=== PATIENT | female | born 1960 | race Caucasian/White ===

== ENCOUNTER → 2018-06-16 13:07 | Outpatient (CLI) | payer OTHER, SELFPAY ==
--- NOTE | 2018-06-16 | DI.MG.S_ITS ---
BILATERAL DIGITAL SCREENING MAMMOGRAM 3D/2D WITH CAD: 06/16/2018 CLINICAL: Routine screening. Comparison is made to exams dated: 08/15/2016 mammogram, 04/10/2013 mammogram, and 02/13/2012 mammogram - [facility] [place]. There are scattered fibroglandular elements in both breasts. Current study was also evaluated with a Computer Aided Detection (CAD) system. There is a mole marker on the left breast. No significant masses, calcifications, or other findings are seen in either breast. There has been no significant interval change. IMPRESSION: NEGATIVE There is no mammographic evidence of malignancy. A 1 year screening mammogram is recommended.(06/17/2019) This exam was interpreted at Station ID: [id number]. NOTE: For mammograms, a report in lay terms will be sent to the patient. Approximately 15% of breast malignancies will not be visualized mammographically. In the management of a palpable breast mass, a negative mammogram must not discourage biopsy of a clinically suspicious lesion. Electronically Signed By: Devin wells/aba:06/17/2018 01:07:07 copy to: Glenny Hendrickson letter sent: Normal Exam ACR BI-RADS Category 1: Negative [id number]
== END ==
PROVIDERS: PCP Family Medicine; Visit Provider Family Medicine
DX: Z12.31 Encounter for screening mammogram for malignant neoplasm of breast (principal)
CPT/HCPCS: 77063; 77067

== ENCOUNTER 2018-07-07 14:24 | Day surgery (SDC) | payer OTHER, SELFPAY ==
[2018-07-02 08:33] VITALS: BMI 27.1
--- NOTE | 2018-07-07 | PATH_ITS ---
[facility] Accession Number: [id number] . 01 Material submitted: . ENDOMETRIAL POLYP . 02 Diagnosis: Endometrium, Polyp, Biopsy: Benign endometrial polyp. No evidence of neoplasia or hyperplasia. [facility]/07/09/2018 . 02 Electronically signed: . Jazmyn Perez MD, Pathologist NPI- [id number] . 01 Gross description: . Received one formalin-filled container labeled with the patient's name and labeled endometrial polyp. The specimen consists of approximately a 1.25 cc aggregate of tissue, mucoid material and blood. Filtered, wrapped and entirely submitted in cassette A1. Also, received are three lewis-montoya to light montoya-brown rough irregularly shaped portions of tissue, which aggregate to 5.0 x 2.5 x 1.5 cm. The specimen is sectioned into multiple pieces and totally submitted in cassettes A2-A8. ([facility]:[id number]) /[facility] . 02 Pathologist provided ICD-10: N84.1 . 02 CPT . 586624 Performed at: 01 [facility] [address], [place], [place] [id number] MD Yan Jiang MD Phone: [phone] Performed at: 02 [facility] [address] [place], [place] [id number] MD Antony Sahu MD Phone: [phone]
[2018-07-07 14:58] VITALS: BP 159/86; PULSE 77; RESP 16; TEMP 36.2; O2SAT 100; BMI 27.1
--- NOTE | 2018-07-07 16:06 | PM.PREOP ---
Pre-operative Note Interval Note Pre-op Check: Yes History & Physical Reviewed by Physician and Yes Exam Performed Changes: No H&P completed within 30 days and has changed as indicated here:: See outpatient note 06/16/2018
[2018-07-07] MEDS: CEFAZOLIN 2 GM/100 ML FROZ.PIGGY IV (16:25)
--- NOTE | 2018-07-07 16:53 | SUR.OPER ---
Lithotomy on padded OR bed, head on pillow, arms secured on padded arm boards at <90 degrees abduction. Legs secured in padded yellow fins stirrups.
[2018-07-07 17:21] VITALS: BP 105/54; PULSE 70; RESP 21; TEMP 36.6; O2SAT 98
[2018-07-07 17:25] VITALS: BP 143/81; PULSE 68; RESP 16; TEMP 36.6; O2SAT 94
[2018-07-07] MEDS: ONDANSETRON 4 MG/2 ML INJ IV (17:25)
[2018-07-07] MEDS: LACTATED RINGERS 1,000 ML 42 ML IV (17:29)
[2018-07-07 17:30] VITALS: BP 140/75; PULSE 67; RESP 19; TEMP 36.6; O2SAT 96
[2018-07-07 17:44] VITALS: BP 145/70; PULSE 68; RESP 18; TEMP 36.6; O2SAT 95
--- NOTE | 2018-07-07 18:11 | PM.OP.1 ---
Operative Date/Time/Diagnoses Date of procedure: 07/07/18 Time of procedure: 17:14 Pre-op diagnosis: Menorrhagia and large polyp likely a endometrial in origin prolapsed through the cervix Post-op diagnosis: same Procedure & Clinicians Procedure: Operative hysteroscopy with resection of uterine polyp and uterine curettage Same procedure as scheduled: Yes Indications: Postmenopausal bleeding and large polyp prolapsed out of the cervical os Surgeon: Glenny Hendrickson Click Yes if Unassisted: Yes Anesthesia Type: General Operative Notes Findings: Large endometrial polyp with multiple intracavitary and submucous fibroids thin endometrium otherwise Closure Type: not applicable Specimen(s): other (Endometrial polyp and uterine curettings) Estimated Blood Loss (mL): 15 Blood products transfused: none Procedure in detail: The patient was brought to the operating room where she underwent general anesthesia. She was placed in low stirrups She was prepped and draped in usual sterile fashion with pulsatile stockings in place and functional, warming in place, 2 g of Ancef were in prior to beginning the case. Her bladder was drained with in and out catheter. The Bovie was used to resect as much of the polyp as possible inside the cervix. A single-tooth tenaculum was placed on the anterior lip of the cervix. The cervix was already significantly dilated. The hysteroscope was placed into the uterus with a sorbitol solution running and under constant suction. The resecting loop set at 100 W of cutting was used to resect the polyp down to the level of the endometrium. A endometrial curettage was performed. The fibroid and the endometrial curettage was sent to pathology. The patient went to recovery room in good condition counts of instruments and sponges were correct. The sorbitol solution I=O approximately 5000 mL. Complications: none Condition: stable Disposition: same day surgery Plan for aftercare: Patient is to call if she has concerns with bleeding, symptoms of infection, increasing pain.
--- NOTE | 2018-07-07 18:22 | SUR.PHASEII ---
1125 ML iv fluid intake.
== END 2018-07-07 18:13 | disposition home or self-care (01) ==
PROVIDERS: PCP Family Medicine; Visit Provider Specialist
PROC: 0UDB8ZZ Extraction of Endometrium, Via Natural or Artificial Opening Endoscopic (ICD-10-PCS; CPT 58558; principal; 2018-07-07 15:45)
DX: N84.1 Polyp of cervix uteri (principal); D25.0 Submucous leiomyoma of uterus; I48.91 Unspecified atrial fibrillation; D64.9 Anemia, unspecified; I10 Essential (primary) hypertension
CPT/HCPCS: 58558; J0690; J1100; J2250; J2405; J2704; J3010

== ENCOUNTER → 2018-07-08 08:38 | Outpatient (CLI) | payer OTHER, SELFPAY ==
--- NOTE | 2018-07-08 | DI.MRI.S_ITS ---
PROCEDURE: MR LUMBAR SPINE WO CON INDICATIONS: LUMBAR STENOSIS WITH NEUROGENIC CLAUDICATION,OSTEO TECHNIQUE: Noncontrast sagittal T1 spin echo and T2 fast echo, sagittal STIR, axial T1 and T2 fast spin echo through the lumbar spine. In cases with scoliosis, additional coronal T2 fast spin echo may be performed. COMPARISON: [facility], MR, L-SPINE WITHOUT CONTRAST, 03/20/2012, 10:49. [facility], MR, LUMBAR SPINE W/O CONTRAST, 08/10/2013, 9:44. FINDINGS: Image quality: Excellent. Alignment and Curvature: There is normal bony alignment. Bone Marrow: Degenerative endplate single changes at L4 and L5. No acute vertebral body compression fractures. Spinal Cord: Conus medullaris terminates at the L1-L2 level. Visualized cord demonstrates normal signal and size. Paraspinous Soft Tissues: No paravertebral masses. There is a 0.9 x 1.5 cm right adrenal nodule. L1-L2: Normal appearance. L2-L3: Pdos-ru-kecvrqhc loss of disc height. Moderate disc desiccation. There is mild posterior disc bulge. Mild bilateral facet arthropathy and hypertrophy of ligamentum flavum. The central canal is patent. No foraminal stenosis. No significant change from the last exam. L3-L4: Qhrh-at-tbaeqvnc loss of disc height. Moderate disc desiccation. There is diffuse posterior disc bulge and disc osteophyte complex. Mild bilateral facet arthropathy and hypertrophy of ligamentum flavum. The central canal is mildly narrowed. No foraminal stenosis. No significant change from the last exam. L4-L5: Rplcteda-vt-otysim loss of disc height and disc desiccation. There is minimal posterior disc bulge. Mild bilateral facet arthropathy and hypertrophy of ligamentum flavum. The central canal is minimally narrowed. Mild/moderate bilateral foraminal stenosis. There is mild progression of disc degeneration since the last exam. L5-S1: Preserved disc height. Mild disc desiccation. There is mild posterior disc bulge. Mild bilateral facet arthropathy. The central canal is patent. No foraminal stenosis. No significant change from the last exam. IMPRESSION: 1. Multilevel degenerative disc disease and facet arthropathy as described, progressed at L4-L5 level. 2. Mild central canal stenosis at L3-L4 and L4-L5. 3. Ypfd-fx-vegsugui foraminal stenosis at L4-L5 bilaterally. 4. A 0.9 x 1.5 cm right adrenal nodule. If indicated, adrenal protocol CT may be obtained for further evaluation. Dictated by: Marylou Campbell M.D. on 07/08/2018 at 16:00 Approved by: Marylou Campbell M.D. on 07/08/2018 at 16:11
--- NOTE | 2018-07-08 | DI.RAD.S_ITS ---
PROCEDURE: XR THORACIC SPINE 3V INDICATIONS: LUMBAR STENOSIS WITH NEUROGENIC CLAUDICATION TECHNIQUE: 3 views of the thoracic spine were acquired. COMPARISON: None. FINDINGS: Bones: No fractures or dislocations. No suspicious bony lesions. 12 pairs of ribs are noted, and appear intact where visualized. There is mild to moderate degenerative disc disease throughout the thoracic spine. Soft tissues: No paravertebral stripe thickening. IMPRESSION: Mild to moderate degenerative disc disease throughout the thoracic spine. Dictated by: Marylou Campbell M.D. on 07/08/2018 at 16:51 Approved by: Marylou Campbell M.D. on 07/08/2018 at 16:52
--- NOTE | 2018-07-08 | DI.MRI.S_ITS ---
PROCEDURE: MR CERVICAL SPINE WO CON INDICATIONS: LUMBAR STENOSIS WITH NEUROGENIC CLAUDICATION,OSTEO TECHNIQUE: Noncontrast sagittal T1 spin echo and T2 fast spin echo, sagittal STIR, foraminal oblique sagittal T2 fast spin echo, and axial gradient echo or T2 fast spin echo through the cervical spine. COMPARISON: None. FINDINGS: Image quality: Excellent. Alignment and Curvature: There is normal bony alignment. History normal cervical spine curvature. Bone Marrow: Marrow demonstrates normal overall signal. Spinal Cord: Visualized spinal cord has normal size and signal. No cerebellar tonsillar herniation. Paraspinous Soft Tissues: 1.6 cm in nodule is partially visualized in the right lobe of thyroid gland. Prevertebral soft tissues are normal in thickness. C2-C3: Loss of disc signal. Severe left facet hypertrophy. No central stenosis. Mild left neural foraminal narrowing. No neural impingement. C3-C4: Loss of disc signal and slight loss of disc height. Mild, diffuse disc bulge. Moderate right and mild left facet hypertrophy. No central stenosis. Moderate right and mild left neural foraminal narrowing. No neural impingement. C4-C5: Loss of disc signal and height. Mild, diffuse disc bulge. Moderate right and mild left facet hypertrophy. Mild bilateral uncovertebral joint hypertrophy. No central stenosis. Moderate right and mild left neural foraminal narrowing. No neural impingement. C5-C6: Loss of disc signal. Mild, diffuse disc bulge. Mild bilateral uncovertebral joint hypertrophy. No central stenosis. No neural foraminal narrowing. No neural impingement. C6-C7: Loss of the signal. Minimal, diffuse disc bulge. No central stenosis. No neural foraminal narrowing. No neural impingement. C7-T1: Normal appearance. IMPRESSION: 1. Multilevel degenerative disc disease. 2. Multilevel facet arthropathy and uncovertebral joint hypertrophy. 3. No central stenosis. 4. Moderate right and mild left C3-C4 and C4-C5 neural foraminal narrowing. Mild left C2-C3 neural foraminal narrowing. 5. No neural impingement. 6. 1.6 cm right thyroid nodule. Recommend thyroid ultrasound for definitive characterization. Dictated by: Alisha Vanegas MD, PhD on 07/08/2018 at 10:14 Approved by: Alisha Vanegas MD, PhD on 07/08/2018 at 10:23
== END ==
PROVIDERS: PCP Family Medicine; Visit Provider Family Medicine
DX: M48.062 Spinal stenosis, lumbar region with neurogenic claudication (principal); M51.14 Intervertebral disc disorders with radiculopathy, thoracic region; M81.0 Age-related osteoporosis without current pathological fracture; M51.34 Other intervertebral disc degeneration, thoracic region; M50.31 Other cervical disc degeneration, high cervical region; M48.02 Spinal stenosis, cervical region; M47.812 Spondylosis without myelopathy or radiculopathy, cervical region; M51.36 Other intervertebral disc degeneration, lumbar region; M47.816 Spondylosis without myelopathy or radiculopathy, lumbar region; E04.1 Nontoxic single thyroid nodule; E27.9 Disorder of adrenal gland, unspecified
CPT/HCPCS: 72072; 72141; 72148; 77080

== ENCOUNTER → 2018-08-21 10:40 | Outpatient (CLI) | payer OTHER, SELFPAY ==
--- NOTE | 2018-08-21 | DI.CT.S_ITS ---
PROCEDURE: CT ABDOMEN WO/W CON INDICATIONS: ADRENAL NODULE TECHNIQUE: Noncontrast 3 mm thick sections acquired from the diaphragms to the iliac crests. After the administration of intravenous contrast, 3 mm thick venous-phase and 10-minute delayed images acquired from the diaphragms to the iliac crests. For radiation dose reduction, the following was used: automated exposure control, adjustment of mA and/or kV according to patient size. COMPARISON: [facility], MR, MR LUMBAR SPINE WO CON, 07/08/2018, 9:33. FINDINGS: Image quality: Excellent. Lung bases: Lung bases are clear. Heart size is normal. Adrenal glands: 2 x 1.1 cm hypodense nodule is noted in medial limb of right adrenal gland with density measures 4 Hounsfield unit, and is consistent with a lipid rich adrenal adenoma. No discrete left adrenal nodule is seen. Solid organs: Liver is normal in size and enhancement. Gallbladder is within normal limits. Biliary system is non dilated. Pancreas enhances normally. Spleen is normal in size and enhancement. Kidneys are normal in size and enhancement. No hydronephrosis or nephrolithiasis. Peritoneum and bowel: Unenhanced bowel loops are normal in caliber and wall thickness. No free fluid or air. There is a small height hernia. Nodes and vessels: No retroperitoneal or mesenteric adenopathy by size criteria. Aorta and inferior vena cava are normal in size. Miscellaneous: No ventral hernias. Bones: No suspicious bony lesions. No vertebral body compression fractures. IMPRESSION: 2 x 1.1 cm hypodense nodule in right adrenal gland with density measurement consistent with a benign lipid rich adrenal adenoma. Dictated by: Yoshi Mirza M.D. on 08/21/2018 at 14:20 Approved by: Yoshi Mirza M.D. on 08/21/2018 at 14:43
--- NOTE | 2018-08-21 | DI.US.S_ITS ---
PROCEDURE: US THYROID INDICATIONS: ADRENAL NODULE RIGHT THYROID NODULE TECHNIQUE: Real-time scanning was performed of the thyroid gland, with image documentation. COMPARISON: None. FINDINGS: Right: Thyroid lobe measures 4.0 x 1.9 x 1.3 cm, and is homogeneous in echotexture. Left: Thyroid lobe measures 4.2 x 1.5 x 1.0 cm, and is homogenous in echotexture. Isthmus: 4.0 mm thick. Nodule number: 1 Location: Right mid to inferior Size: 1.4 x 1.2 x 1.7 cm. Composition: Solid Echogenicity: Hypoechoic Shape: wider than tall. Margins: Smooth Echogenic foci: None Total points: 4 ACR TI-RADS category: Moderately suspicious Nodule number: 2 Location: Left superior Size: 0.6 x 0.5 x 0.8 cm. Composition: Solid Echogenicity: Hypoechoic Shape: wider than tall. Margins: Smooth Echogenic foci: None Total points: 4 ACR TI-RADS category: Moderately suspicious Nodule number: 3 Location: Left mid inferior Size: 0.7 x 0.5 x 0.8 cm. Composition: Solid Echogenicity: Hypoechoic Shape: wider than tall. Margins: Smooth Echogenic foci: Multiple echogenic punctate foci Total points: 7 ACR TI-RADS category: Highly suspicious IMPRESSION: Bilateral thyroid nodules as above. Recommend fine needle aspiration involving the # 1 right thyroid nodule and continued sonographic surveillance of the additional nodules as detailed below. ACR TI-RADS definitions and recommendations: TI-RADS 1 (benign): 0 points. FNA not needed. TI-RADS 2 (not suspicious): 2 points. FNA not needed. TI-RADS 3 (mildly suspicious): 3 points. * FNA if 2.5 cm or larger, follow up if 1.5 cm or larger (at 1, 3, and 5 years). TI-RADS 4 (moderately suspicious): 4-6 points. * FNA if 1.5 cm or larger, follow up if 1 cm or larger (at 1, 2, 3, and 5 years). TI-RADS 5 (highly suspicious): 7 points or more. * FNA if 1 cm or larger, follow up if 0.5 cm or larger (every year for 5 years). Dictated by: Ilir LUU Interpreted: Marylou Campbell MD on 08/21/2018 at 12:51 Approved by: Marylou Campbell M.D. on 08/22/2018 at 9:09
== END ==
PROVIDERS: PCP Family Medicine; Visit Provider Family Medicine
DX: E27.9 Disorder of adrenal gland, unspecified (principal); E04.2 Nontoxic multinodular goiter
CPT/HCPCS: 74170; 76536; Q9967

== ENCOUNTER → 2020-08-29 10:39 | Outpatient (CLI) | payer OTHER, SELFPAY ==
--- NOTE | 2020-08-29 10:42 | DI.US.S_ITS ---
PROCEDURE: US ABDOMEN COMPLETE INDICATIONS: EPIGASTRIC PAIN TECHNIQUE: Real-time scanning was performed of the abdominal and retroperitoneal organs, with image documentation. COMPARISON: [facility], US, ABDOMEN COMPLETE, 01/04/2015, 9:10. [facility], US, US PELVIC COMPLETE, 08/29/2020, 10:53. [facility], US, ABDOMEN COMPLETE, 10/19/2013, 11:46. FINDINGS: Liver: Liver is normal in size and heterogeneous in echotexture. Gallbladder: No findings of gallstones or sludge are seen. The gallbladder wall is not thickened, measuring 3 mm or less. No specific pericholecystic fluid is seen. The sonographic Hargrove sign is negative. Biliary ducts: Intrahepatic bile ducts are non-dilated. Extrahepatic bile duct caliber measures 4 mm. Normal is 6-7 mm or less in diameter, or 10 mm or less post-cholecystectomy. Pancreas: Visualized portions of the pancreas are sonographically normal. Spleen: Spleen is normal in size and homogeneous in echotexture. Kidneys: Kidneys are normal in size and echotexture. Right kidney measures 10.2 cm long; left kidney measures 9.6 cm long. No hydronephrosis or nephrolithiasis. No solid masses. Aorta: Visualized aorta is normal in caliber at less than 3 cm. Iliacs: Proximal common iliac arteries are normal in caliber at less than 2.5 cm. IVC: Intrahepatic inferior vena cava is patent. Miscellaneous: No free abdominal fluid. IMPRESSION: No imaging explanation is found for this patient's presenting symptoms. The gallbladder demonstrates a normal sonographic appearance. No biliary dilatation is seen. Dictated by: Meek Jackson M.D. on 08/29/2020 at 11:11 Approved by: Meek Jackson M.D. on 08/29/2020 at 11:11
--- NOTE | 2020-08-29 10:42 | DI.US.S_ITS ---
PROCEDURE: US PELVIC COMPLETE INDICATIONS: LOWER ABDOMINAL PAIN TECHNIQUE: Real-time scanning was performed of the pelvic organs, with image documentation. Additional endovaginal scanning was necessary due to incomplete visualization of the adnexal and endometrial structures by transabdominal scanning. COMPARISON: [facility], US, US PELVIC COMPLETE, 06/16/2018, 14:26. FINDINGS: Transabdominal scanning: Limited scanning through the kidneys shows no hydronephrosis. No pathologic free abdominal or pelvic fluid. Endovaginal scanning: Uterus: Uterus is enlarged in size at 6.4 x 8.8 x 14.1 cm. The endometrium measures 5.6 mm in combined thickness. The myometrium is heterogeneous and contains scattered multiple uterine moderate to moderately large sized fibroids, located at the midline posteriorly in the intramural space measuring up to 5.1 cm; at the midline posteriorly in the intramural space measuring up to 4.1 cm; and on the right at the anterior aspect of the myometrium in the intramural space measuring up to 3.2 cm. Ovaries: The right ovary measures 3.8 x 2.3 x 2.6 cm and the left measures 2.8 x 1.7 x 1.4 cm with a right ovarian cyst measuring up to 1.8 x 2.1 x 3.1 cm and a left ovarian cyst measuring only 1.0 x 1.0 x 1.7 cm. IMPRESSION: Uterine enlargement by multiple fibroids. The endometrial lining is not well visualized as result but where well seated appears normal in thickness. Normal appearing the ovaries except for a mildly prominent right ovarian cyst as discussed above which could be further assessed for resolution by repeat pelvic ultrasound in 6-8 weeks, if clinically desired. Dictated by: Mustapha Aguilar M.D. on 08/29/2020 at 14:23 Approved by: Mustapha Aguilar M.D. on 08/29/2020 at 14:26
== END ==
PROVIDERS: PCP Family Medicine; Referring Provider Family Medicine; Visit Provider Family Medicine
DX: R10.30 Lower abdominal pain, unspecified (principal); R10.13 Epigastric pain; D25.1 Intramural leiomyoma of uterus; N83.201 Unspecified ovarian cyst, right side
CPT/HCPCS: 76700; 76830; 76856

== ENCOUNTER → 2020-11-08 09:50 | Outpatient (CLI) | payer OTHER, SELFPAY ==
--- NOTE | 2020-11-08 09:55 | DI.CT.S_ITS ---
PROCEDURE: CT ABDOMEN PELVIS W CON INDICATIONS: UNSPECIFIED OVARIAN CYST, RIGHT SIDE TECHNIQUE: After the administration of oral and intravenous contrast, 5 mm thick sections acquired from the diaphragms to the symphysis. 5 mm thick coronal and sagittal reformats were performed. For radiation dose reduction, the following was used: automated exposure control, adjustment of mA and/or kV according to patient size. COMPARISON: [facility], US, US PELVIC COMPLETE, 06/16/2018, 14:26. [facility], US, US ABDOMEN COMPLETE, 08/29/2020, 11:14. [facility], US, US PELVIC COMPLETE, 08/29/2020, 10:53. [facility], CT, CT ABDOMEN WO/W CON, 08/21/2018, 11:03. FINDINGS: Image quality: Excellent. ABDOMEN: Lung bases: Lung bases are clear. Heart size is normal. Solid organs: Hepatic steatosis. Liver is normal in size and enhancement. Gallbladder is normal. Biliary system is non-dilated. Pancreas enhances normally. Spleen is normal in size and enhancement. There is a 1.0 x 1.7 right adrenal nodule, which demonstrated CT density less than 10 HU, compatible with a adrenal adenoma. It appears unchanged in size since the last exam. Kidneys are normal in size and enhancement, without hydronephrosis. Peritoneum and bowel: Stomach, small bowel, and colon loops are normal in caliber and wall thickness. There is a moderate amount of stool in colon. No free fluid or air. Nodes and vessels: No retroperitoneal or mesenteric adenopathy. Aorta and inferior vena cava are normal in caliber. Miscellaneous: A small fat containing umbilical hernia is noted. PELVIS: Genitourinary: Uterus is enlarged measuring 6.0 x 10.1 x 10.3 cm. There are multiple uterine fibroids. There is a 1.8 cm cyst in the right ovary. Left ovary is unremarkable. No free fluid in pelvis. Bladder wall thickness is normal. Miscellaneous: No inguinal hernias or adenopathy. Bones: No suspicious bony lesions. No vertebral body compression fractures. Severe degenerative disease at L4-L5. Moderate facet arthropathy in lumbar spine. IMPRESSION: 1. A 1.8 cm right ovarian cyst, most likely a dominant ovarian follicle. If clinically indicated, follow-up ultrasound may be considered. 2. Enlarged uterus with multiple uterine fibroids. 3. Stable right adrenal adenoma. 4. Hepatic steatosis. Dictated by: Marylou Campbell M.D. on 11/08/2020 at 13:52 Approved by: Marylou Campbell M.D. on 11/08/2020 at 15:20
== END ==
PROVIDERS: PCP Family Medicine; Referring Provider Family Medicine; Visit Provider Family Medicine
DX: N83.201 Unspecified ovarian cyst, right side (principal); D35.01 Benign neoplasm of right adrenal gland; D25.9 Leiomyoma of uterus, unspecified; K76.0 Fatty (change of) liver, not elsewhere classified; R10.30 Lower abdominal pain, unspecified; N85.8 Other specified noninflammatory disorders of uterus; R13.10 Dysphagia, unspecified; R10.13 Epigastric pain; R00.2 Palpitations; R07.9 Chest pain, unspecified
CPT/HCPCS: 74177; Q9967

== ENCOUNTER → 2021-04-03 09:52 | Outpatient (CLI) | payer OTHER, SELFPAY ==
[2021-04-03 19:34] LABS: Cholesterol 173 mg/dL (140-199); HDL Cholesterol 64 mg/dL (40-60); LDL Cholesterol Calculated 78 mg/dL (<100); Triglycerides 153 mg/dL (35-150)
[2021-04-03 19:39] LABS: Alanine Aminotransferase 22 IU/L (<35); Albumin 4.1 g/dL (3.5-5.0); Albumin Globulin Ratio 1.5 (1.0-2.8); Alkaline Phosphatase 80 U/L (38-126); Aspartate Aminotransferase 28 IU/L (14-36); BUN Creatinine Ratio 14.7 (6-22); Bilirubin Total 0.9 mg/dL (0.2-1.3); Blood Urea Nitrogen 10 mg/dL (7-17); Calcium 10.1 mg/dL (8.4-10.2); Carbon Dioxide 30 mmol/L (22-32); Chloride 101 mmol/L (98-107); Estimated Glomerular Filt Rate > 60.0 mL/min (>60); Globulin 2.8 g/dL (1.7-4.1); Glucose 93 mg/dL (80-110); HEMOLYSIS < 15 (0-50); Potassium 5.1 mmol/L (3.4-5.1); Sodium 137 mmol/L (137-145); Total Protein 6.9 g/dL (6.3-8.2)
== END ==
PROVIDERS: Internal Medicine Cardiovascular Disease; PCP Family Medicine; Visit Provider Family Medicine
DX: I10 Essential (primary) hypertension (principal)
CPT/HCPCS: 80053; 80061

== ENCOUNTER → 2021-09-28 07:17 | Outpatient (CLI) | payer OTHER, SELFPAY ==
--- NOTE | 2021-09-28 | DI.US.S_ITS ---
PROCEDURE: US THYROID INDICATIONS: NODULES TECHNIQUE: Real-time scanning was performed of the thyroid gland, with image documentation. COMPARISON: [facility], US, US THYROID, 08/21/2018, 11:32. FINDINGS: Right: Thyroid lobe measures 5.3 x 2.2 x 1.6 cm, and is predominantly homogeneous in echotexture. Left: Thyroid lobe measures 5.7 x 1.3 x 1.2 cm, and is predominantly homogenous in echotexture. Isthmus: 3 mm thick. Nodule number: 1 Location: Right mid Size: 2 x 1.4 x 1.5 cm. Composition: Solid Echogenicity: Hypoechoic Shape: wider than tall. Margins: Smooth Echogenic foci: None. Total points: 4 ACR TI-RADS category: Moderately suspicious; consider fine needle aspiration if not previously performed. Nodule number: 2 Location: Left superior Size: 1.1 x 0.5 x 0.8 cm. Composition: Solid Echogenicity: Hypoechoic Shape: wider than tall. Margins: Small Echogenic foci: None. Total points: 4 ACR TI-RADS category: Moderately suspicious; follow up if 1 cm or larger (at 1, 2, 3, and 5 years). Nodule number: 3 Location: Left mid/inferior Size: 0.7 x 0.5 x 0.8 cm. Composition: Solid Echogenicity: Hypoechoic Shape: wider than tall. Margins: Smooth Echogenic foci: Punctate. Total points: 7 ACR TI-RADS category: Highly suspicious; follow up if 0.5 cm or larger (every year for 5 years). IMPRESSION: Thyroid nodules and recommendations as detailed above. ACR TI-RADS definitions and recommendations: TI-RADS 1 (benign): 0 points. FNA not needed. TI-RADS 2 (not suspicious): 2 points. FNA not needed. TI-RADS 3 (mildly suspicious): 3 points. * FNA if 2.5 cm or larger, follow up if 1.5 cm or larger (at 1, 3, and 5 years). TI-RADS 4 (moderately suspicious): 4-6 points. * FNA if 1.5 cm or larger, follow up if 1 cm or larger (at 1, 2, 3, and 5 years). TI-RADS 5 (highly suspicious): 7 points or more. * FNA if 1 cm or larger, follow up if 0.5 cm or larger (every year for 5 years). Dictated by: Louis Hinds M.D. on 09/28/2021 at 8:28 Approved by: Louis Hinds M.D. on 09/28/2021 at 8:40
== END ==
PROVIDERS: Family Provider Family Medicine; PCP Family Medicine; Referring Provider Family Medicine; Visit Provider Family Medicine
DX: E04.2 Nontoxic multinodular goiter (principal)
CPT/HCPCS: 76536

== ENCOUNTER → 2021-09-28 07:59 | Outpatient (CLI) | payer OTHER, SELFPAY | PROVIDERS: Family Provider Family Medicine; PCP Family Medicine; Referring Provider Family Medicine; Visit Provider Family Medicine | DX: G62.9 Polyneuropathy, unspecified (principal) | CPT/HCPCS: 76536; 95885; 95886; 95911; 95913 ==

== ENCOUNTER → 2023-02-19 11:00 | Outpatient (CLI) | payer MEDICARE, SELFPAY ==
--- NOTE | 2023-02-19 | DI.US.S_ITS ---
PROCEDURE: US PELVIC COMPLETE INDICATIONS: LEIOMYOMA OF UTERUS TECHNIQUE: Real-time scanning was performed of the pelvic organs, with image documentation. Additional endovaginal scanning was necessary due to incomplete visualization of the adnexal and endometrial structures by transabdominal scanning. COMPARISON: [facility], CT, CT ABDOMEN PELVIS W CON, 11/08/2020, 11:07. [facility], US, US PELVIC COMPLETE, 08/29/2020, 10:53. FINDINGS: Uterus: Uterus is anteverted and normal in size at 7.2 x 6.9 x 8.8 cm. The myometrium is heterogeneous. The endometrium is not well seen secondary to multiple fibroids. Unchanged fibroids are as follows: Fibroid 1: Left posterior subserosal, 5.0 x 4.4 x 5.6 cm Fibroid 2: Anterior midline anterior intramural and submucosal, 3.7 x 3.2 x 3.3 cm Fibroid 3: Right anterior subserosal, 3.4 x 2.5 x 3.1 cm. Fibroid 4: Right posterior subserosal, 2.7 x 1.9 x 2.2 cm. Ovaries: Ovaries are not identified, possibly secondary to involutional change. Other: No pathologic free abdominal or pelvic fluid. IMPRESSION: 1. Numerous uterine fibroids, not significantly changed in size. 2. It is noted that the maximum dimension of the uterus is underestimated on this study. However, the size of the fibroids is stable. Comment: If this patient has any bleeding symptoms, pelvic MRI with and without contrast would identify the thickness of the endometrium, as the endometrium was not well visualized on the current study. We strive to produce accurate, complete, and clear reports of imaging services. To assist us in improving patient care, this report was composed using standard report templates and voice recognition software. Therefore, it may contain abnormal punctuation, insertions and/or omissions. Occasional wrong-word or sound-alike substitutions may occur. Though we review the report and make efforts to correct it, we do recommend that the report be read carefully in proper context to recognize any text inaccuracies. Dictated by: Zoltan Gill M.D. on 02/19/2023 at 14:36 Approved by: Zoltan Gill M.D. on 02/19/2023 at 15:09
--- NOTE | 2023-02-19 11:06 | DI.RAD.S_ITS ---
PROCEDURE: XR CERVICAL SPINE 4V OR 5V INDICATIONS: neck pain, radiculopathy lumbar and thoracic spine TECHNIQUE: 5 views of the cervical spine were acquired. COMPARISON: None. FINDINGS: Bones: No fractures or dislocations to the T1 level. No suspicious bony lesions. There is normal range of motion between flexion and extension, with preserved vertebral body alignment. Mild degenerative disc changes and facet arthropathy noted throughout the cervical spine. Mild C 4-C5, C5-C6 and C6-C7 uncovertebral hypertrophy. Soft tissues: Prevertebral soft tissues are normal in thickness. IMPRESSION: 1. Multilevel degenerative disc disease. 2. Multilevel facet and uncovertebral arthropathy. 3. No fracture. No acute osseous lesion. If symptoms and/or clinical suspicion for pathology persists, evaluation with MRI should be considered for further assessment. Dictated by: Alisha Vanegas MD, PhD on 02/19/2023 at 14:12 Approved by: Alisha Vanegas MD, PhD on 02/19/2023 at 14:13
--- NOTE | 2023-02-19 11:06 | DI.RAD.S_ITS ---
PROCEDURE: XR THORACIC SPINE 3V INDICATIONS: neck pain, radiculopathy lumbar and thoracic spine TECHNIQUE: 3 views of the thoracic spine were acquired. COMPARISON: None. FINDINGS: Bones: No fractures or dislocations. Mild convex right curvature of the midthoracic spine. No suspicious bony lesions. 12 pairs of ribs are noted, and appear intact where visualized. Moderate degenerative disc changes throughout the thoracic spine. Mild facet hypertrophy throughout the thoracic spine. Soft tissues: No paravertebral stripe thickening. IMPRESSION: 1. Multilevel degenerative disc disease. 2. Multilevel facet arthropathy. 3. No fracture. No acute osseous lesion. If symptoms and/or clinical suspicion for pathology persists, evaluation with MRI should be considered for further assessment. Dictated by: Alisha Vanegas MD, PhD on 02/19/2023 at 14:11 Approved by: Alisha Vanegas MD, PhD on 02/19/2023 at 14:12
--- NOTE | 2023-02-19 11:06 | DI.RAD.S_ITS ---
PROCEDURE: XR LUMBAR SPINE MIN 4V INDICATIONS: neck pain, radiculopathy lumbar and thoracic spine TECHNIQUE: 5 views of the lumbar spine acquired, including flexion and extension views. COMPARISON: None. FINDINGS: Bones: 5 nonrib-bearing vertebrae are present. There is mild, approximately 4 millimeters of L3-L4 anterolisthesis. No vertebral body compression fractures. No suspicious bony lesions. Severe L4-L5 degenerative disc disease. Moderate L2-L3, L3-L4 and L5-S1 degenerative disc disease. Moderate L3-L4, L4-L5 and L5-S1 facet arthropathy. Soft tissues: Overlying bowel gas pattern is normal. No suspicious soft tissue calcifications. Flexion/extension: There is normal range of motion, with preserved vertebral body alignment. IMPRESSION: 1. Multilevel degenerative disc disease. 2. Multilevel facet arthropathy. 3. No fracture. No acute osseous lesion. If symptoms and/or clinical suspicion for pathology persists, evaluation with MRI should be considered for further assessment. Dictated by: Alisha Vanegas MD, PhD on 02/19/2023 at 14:10 Approved by: Alisha Vanegas MD, PhD on 02/19/2023 at 14:11
== END ==
PROVIDERS: Family Provider Family Medicine; PCP Family Medicine; Referring Provider Family Medicine; Visit Provider Family Medicine
DX: D25.0 Submucous leiomyoma of uterus (principal); M51.16 Intervertebral disc disorders with radiculopathy, lumbar region; D25.1 Intramural leiomyoma of uterus; D25.2 Subserosal leiomyoma of uterus; M51.17 Intervertebral disc disorders with radiculopathy, lumbosacral region; M51.14 Intervertebral disc disorders with radiculopathy, thoracic region; M47.24 Other spondylosis with radiculopathy, thoracic region; M47.26 Other spondylosis with radiculopathy, lumbar region; M47.27 Other spondylosis with radiculopathy, lumbosacral region; M50.30 Other cervical disc degeneration, unspecified cervical region; M47.812 Spondylosis without myelopathy or radiculopathy, cervical region
CPT/HCPCS: 72050; 72074; 72110; 76830; 76856

== ENCOUNTER → 2024-04-03 09:15 | Outpatient (CLI) | payer MEDICARE, SELFPAY ==
--- NOTE | 2024-04-03 09:18 | DI.MG.S_ITS ---
BILATERAL DIGITAL SCREENING MAMMOGRAM 3D/2D WITH CAD: 04/03/2024 CLINICAL: Routine screening. Comparison is made to exams dated: 06/16/2018 mammogram - [facility] and 08/15/2016 mammogram - [facility]. There are scattered areas of fibroglandular density in both breasts (category b / 25%-50% glandular tissue). Current study was also evaluated with a Computer Aided Detection (CAD) system. No significant masses, calcifications, or other findings are seen in either breast. There has been no significant interval change. IMPRESSION: NEGATIVE There is no mammographic evidence of malignancy. A 1 year screening mammogram is recommended. Based on the Tyrer Cuzick model (a risk assessment model) the patient's lifetime risk is 9.6% and her 10 year risk is 4.9%. According to the ACR, ACS, and NCCN guidelines, an annual breast MRI exam along with mammogram is recommended if the patient's lifetime risk is 20% or greater. This exam was interpreted at Station ID: [id number]. NOTE: For mammograms, a report in lay terms will be sent to the patient. Approximately 15% of breast malignancies will not be visualized mammographically. In the management of a palpable breast mass, a negative mammogram must not discourage biopsy of a clinically suspicious lesion. Electronically Signed By: Jose barron/aba:04/03/2024 11:58:48 copy to: PERRY DUARTE letter sent: Normal Exam ACR BI-RADS Category 1: Negative [id number]
--- NOTE | 2024-04-03 09:18 | DI.US.S_ITS ---
PROCEDURE: US THYROID INDICATIONS: THYROID NODULE / ROUTINE SCREENING/PAIN RT SHLD TECHNIQUE: Real-time scanning was performed of the thyroid gland, with image documentation. COMPARISON: [facility], US, US THYROID, 09/28/2021, 7:36. FINDINGS: Thyroid: Right lobe measures 4.9 x 2.0 x 1.3 cm. Left lobe measures 4.5 x 1.4 x 0.9 cm. Isthmus is 0.33 cm thick. Echotexture is homogeneous. Nodule number: 1 Location: Inferior right thyroid lobe Size: 2.0 x 1.3 centimeters Composition: Mixed cystic/solid Echogenicity: Hypoechoic Shape: Wider than tall Margins: Stenosis Echogenic foci: None Total points: 3 ACR Nodule number: 2 Location: Left upper thyroid lobe Size: 0.7 x 0.6 centimeters Composition: Solid or almost completely solid Echogenicity: Hypoechoic Shape: Wider than tall Margins: Smooth Echogenic foci: 1 microcalcification Total points: 5 ACR TI-RADS category: TR4 IMPRESSION: 1. Within the inferior right thyroid lobe, there is a thyroid mass that measures up to 2.0 centimeters with a TI-RADS category of TR3 2. Within the superior left thyroid lobe, there is a thyroid mass that measures up to 0.7 centimeters with a TI-RADS category: TR4 ACR TI-RADS definitions and recommendations: TI-RADS 1 (benign): 0 points. FNA not needed. TI-RADS 2 (not suspicious): 2 points. FNA not needed. TI-RADS 3 (mildly suspicious): 3 points. * FNA if 2.5 cm or larger, follow up if 1.5 cm or larger (at 1, 3, and 5 years). TI-RADS 4 (moderately suspicious): 4-6 points. * FNA if 1.5 cm or larger, follow up if 1 cm or larger (at 1, 2, 3, and 5 years). TI-RADS 5 (highly suspicious): 7 points or more. * FNA if 1 cm or larger, follow up if 0.5 cm or larger (every year for 5 years). Dictated by: Lyndon Turpin M.D. on 04/03/2024 at 12:14 Approved by: Lyndon Turpin M.D. on 04/03/2024 at 12:26
== END ==
PROVIDERS: Family Provider Family Medicine; PCP Family Medicine; Referring Provider Family Medicine; Visit Provider Family Medicine
DX: Z12.31 Encounter for screening mammogram for malignant neoplasm of breast (principal); R92.323 Mammographic fibroglandular density, bilateral breasts; M25.511 Pain in right shoulder; E04.2 Nontoxic multinodular goiter
CPT/HCPCS: 76536; 77063; 77067

== ENCOUNTER → 2024-04-03 09:19 | Outpatient (CLI) | payer MEDICARE, SELFPAY ==
--- NOTE | 2024-04-03 09:20 | DI.MRI.S_ITS ---
PROCEDURE: MR SHOULDER RT WO CON INDICATIONS: THYROID NODULE / ROUTINE SCREENING/PAIN RT SHLD TECHNIQUE: Noncontrast oblique coronal T2 fast spin echo with fat saturation, oblique sagittal T1 spin echo and T2 fast spin echo with fat saturation, axial T1 spin echo and T2 fast spin echo with fat saturation through the shoulder. COMPARISON: [facility] [place], CR, XR SHOULDER 2+ VIEWS RIGHT, 03/09/2024, 14:15. FINDINGS: Image quality: Excellent. Rotator cuff: Moderate tendinosis of the supraspinatus. There is focal, full-thickness tear at the critical zone of the mid fiber of the supraspinatus (series 8, image 10). There is additional full-thickness tear at the critical zone of the junction of the supraspinatus and the infraspinatus, measuring 8 mm on sagittal dimension. There is associated mild tendon retraction of the supraspinatus to the level of the medial humeral head. head. Multiple large delaminated cyst tracking along the infraspinatus tendon, measuring 1.5 cm in craniocaudal dimension. The teres minor is unremarkable. Mild tendinosis of the subscapularis with low-grade interstitial tear of the superior fiber. No muscle edema or fatty atrophy. Bones and bursae: Mild degenerative changes of the acromioclavicular joint. Type 1 acromion. No os acromiale. Moderate subacromial/subdeltoid bursitis. Multifocal mild subchondral cystic changes in the humeral head, reactive. There is additional moderate marrow edema at the greater tuberosity, favor reactive as well. No acute fracture. Capsule and soft tissues: The labrum is grossly intact. Mild tenosynovitis of the extra-articular biceps tendon. The intra-articular biceps tendon is intact. Small glenohumeral effusion. Mild subcoracoid bursitis. No intra-articular bodies. IMPRESSION: 1. Focal full-thickness tear of the mid supraspinatus. Additional full-thickness, partial width tear at the junction of the supraspinatus and infraspinatus. 2. Multiple large delaminating cysts tracking along the infraspinatus tendon. 3. Low-grade tear of the subscapularis. 4. Moderate reactive marrow edema in the greater tuberosity. 5. Moderate subacromial/subdeltoid bursitis. Dictated by: Aruna Arnold M.D. on 04/03/2024 at 12:39 Approved by: Aruna Arnold M.D. on 04/03/2024 at 12:52
== END ==
PROVIDERS: Family Provider Family Medicine; PCP Family Medicine; Referring Provider Orthopaedic Surgery; Visit Provider Orthopaedic Surgery
DX: Z12.31 Encounter for screening mammogram for malignant neoplasm of breast (principal); R92.323 Mammographic fibroglandular density, bilateral breasts; E04.2 Nontoxic multinodular goiter; M75.121 Complete rotator cuff tear or rupture of right shoulder, not specified as traumatic; M67.813 Other specified disorders of tendon, right shoulder; M75.51 Bursitis of right shoulder; M25.511 Pain in right shoulder
CPT/HCPCS: 73221; 76536; 77063; 77067

== ENCOUNTER → 2024-09-25 10:48 | Outpatient (CLI) | payer MEDICARE, SELFPAY ==
--- NOTE | 2024-09-25 10:50 | DI.US.S_ITS ---
PROCEDURE: US PELVIC COMPLETE INDICATIONS: PMB TECHNIQUE: Real-time scanning was performed of the pelvic organs, with image documentation. Additional endovaginal scanning was necessary due to incomplete visualization of the adnexal and endometrial structures by transabdominal scanning. COMPARISON: [facility], , US PELVIC COMPLETE, 02/19/2023, 11:21. FINDINGS: Uterus: 7.5 x 6.9 x 6.7 cm. Endometrium is not well visualized due to fibroids. Retroverted positioning. There are numerous mostly intramural fibroids, right anterior fibroid measures 3 x 2.8 cm, not well visualized previously Anterior mid fibroid measures 4.7 x 5 x 4.7 cm, measuring larger than prior. Right anterior fibroid measures 3.5 x 3.5 x 3.6 cm, stable to slightly increased. Ovaries: Nonenlarged bilaterally measuring 2-3 cc. A simple appearing cyst in the right ovary measures 2 cm. Other: No pathologic free abdominal or pelvic fluid. IMPRESSION: Fibroid uterus, measurements are increased compared to prior imaging. The endometrium was not well seen and likely obscured by the fibroids Further evaluation can be obtained with pelvic MRI to better delineate the fibroids and assess the endometrium in the setting of postmenopausal bleeding. Dictated by: Oswaldo Jamison M.D. on 09/25/2024 at 21:35 Approved by: Oswaldo Jamison M.D. on 09/25/2024 at 21:39
== END ==
LOC: US 10:49
PROVIDERS: Family Provider Family Medicine; PCP Family Medicine; Referring Provider Family Medicine; Visit Provider Family Medicine
DX: D25.1 Intramural leiomyoma of uterus (principal); N83.201 Unspecified ovarian cyst, right side; N95.0 Postmenopausal bleeding
CPT/HCPCS: 76830; 76856

== ENCOUNTER → 2024-10-09 11:53 | Outpatient (CLI) | payer MEDICARE, SELFPAY ==
--- NOTE | 2024-10-09 11:55 | DI.MRI.S_ITS ---
PROCEDURE: MR PELVIS WO/W CON INDICATIONS: POSTMENOPAUSAL BLEEDING,ABN FINDINGS ON DI TECHNIQUE: Coronal HASTE, sagittal breath-hold T2 FSE; axial T1 FSE with and without fat saturation through the pelvis. Optional long- and short-axis uterine nonbreath-hold T2 FSE through the uterus. Sagittal or axial dynamic VIBE during administration of contrast. Post-contrast axial or coronal VIBE/2-D FLASH with fat saturation from the iliac crests to the symphysis. Optional diffusion weighted imaging and ADC may be performed. COMPARISON: None. FINDINGS: Image quality: Excellent. Uterus: The uterus is enlarged, and contains multiple enhancing fibroids. There is low-level intensity within the endometrium. Endometrial stripe measures 6 mm. Pertinent fibroids as follows: -3.3 x 4.1 cm FIGO type 2 fibroid at the fundus (series 4, image 12). -1.4 x 1.5 cm FIGO type 2 fibroid at the mid uterine segment. Adnexa: Both ovaries are atrophic, without solid mass. Simple appearing bilateral cysts are present, largest measuring 1.1 cm on the right (series 4, image 13). Urinary system: Bladder wall is normal in thickness. Distal ureters are non distended. Urethra appears normal in morphology. Nodes and vessels: No pelvic or inguinal adenopathy by size criteria. Iliac vessels are normal in size. Bowel and peritoneum: No pathologic free pelvic fluid. Inferior colon and small bowel loops are normal in caliber. Soft tissues: No inguinal hernias. No findings of pelvic floor incompetence in the absence of provocation. Bones: Marrow demonstrates normal overall signal. IMPRESSION: Endometrium contains low-level intensity, and is mildly dilated at 6 mm. Consider tissue sampling in the setting of postmenopausal bleeding. Myomatous uterus, with multiple FIGO type 2 through 6 fibroids. O-RADS 2 ovarian cysts. Dictated by: Tyler Hinds M.D. on 10/09/2024 at 16:59 Approved by: Tyler Hinds M.D. on 10/09/2024 at 17:02
== END ==
PROVIDERS: Family Provider Family Medicine; PCP Family Medicine; Referring Provider Family Medicine; Visit Provider Family Medicine
DX: N95.0 Postmenopausal bleeding (principal); R93.89 Abnormal findings on diagnostic imaging of other specified body structures; D25.9 Leiomyoma of uterus, unspecified; N83.202 Unspecified ovarian cyst, left side; N83.201 Unspecified ovarian cyst, right side
CPT/HCPCS: 72197; A9579

== ENCOUNTER 2025-01-04 07:55 | Day surgery (SDC) | payer MEDICARE, SELFPAY ==
[2025-01-01 07:52] VITALS: BMI 25.1
[2025-01-04] VITALS (10 sets, daily range): BP systolic 104–147; BP diastolic 46–80; PULSE 62–73; RESP 10–20; TEMP 36.2–36.4; O2SAT 98–100; BMI 25.3
[2025-01-04] MEDS: LACTATED RINGERS 1,000 ML 21 ML IV (08:36)
--- NOTE | 2025-01-04 09:17 | PM.GYNHP.1 ---
History of Present Illness History of Present Illness Reason for admission: vaginal bleeding Narrative: Martina Clarke is a 64 year old female 0 with fibroids, right ovarian cyst, and postmenopausal bleeding. She presents for a laparoscopic supracervical hysterectomy with bilateral salpingo-oophorectomy. She has had a negative endometrial biopsy. [facility] Medical History (Updated 12/10/24 @ 12:28 by Glenny Hendrickson MD) Postmenopausal bleeding PVC (premature ventricular contraction) History of echocardiogram Endocervical polyp (~2015) Postmenopausal Lumbar spine pain Cervical spine disease Atrial fibrillation Hypertension GERD (gastroesophageal reflux disease) Fibroids Anemia Chicken pox Measles Mumps Rosacea Chronic back pain Osteoarthritis Surgical History (Updated 01/01/25 @ 08:00 by Sierra Cerrato RN) History of gynecologic surgery (07/07/18) Anesthesia History of toe surgery (1968) History of right mastoidectomy (1958) Status post arthroscopy (2005) Family History (Updated 06/13/18 @ 08:49 by Darcy Roberto) Father No problems noted. Grandfather No problems noted. Grandmother Throat cancer Mother No problems noted. Grandfather Heart disease Grandmother No problems noted. Sister No problems noted. Social History household members: spouse Smoking Status: Never smoker alcohol intake: current Meds Home Medications and Allergies Home Medications Medication Instructions Recorded Confirmed Type lisinopril 10 mg tablet 10 mg PO QAM #90 tabs 09/19/16 01/04/25 Rx diazepam 10 mg tablet 10 mg PO HSP PRN Unknown 07/02/18 01/04/25 History rosuvastatin 10 mg tablet 10 mg PO QPM Cholestrol 10/19/24 01/04/25 History atenolol 25 mg tablet 75 mg PO SEE INSTRUCTIONS 12/10/24 01/04/25 History cyclobenzaprine 10 mg tablet 10 mg PO PRN PRN Muscle Spasms 12/10/24 01/04/25 History Allergies Allergy/AdvReac Type Severity Reaction Status Date / Time clindamycin [CLINDAMYCIN] Allergy Intermediate RASH, ITCH Verified 01/04/25 08:17 hydrocodone [HYDROCODONE] AdvReac Mild VOMITING Verified 01/04/25 08:17 bee venom AdvReac numbness Uncoded 12/10/24 11:29 Exam Vital Signs (past 8 hours): - 01/04/25 08:20 Temperature 97.6 F Pulse Rate 69 Respiratory Rate 20 Blood Pressure 147/80 H Pulse Oximetry 98 Oxygen Delivery Method Room Air Oxygen Delivery Method Room Air Narrative Exam Narrative: HEENT: No thyromegaly, no anterior cervical or supraclavicular lymphadenopathy. Lungs:Clear to auscultation bilaterally, no wheezes. Cardiovascular: Regular rate and rhythm, no murmurs, rubs, or gallops. Abdomen: No scars. No hepatosplenomegaly. No masses palpable. External genitalia: Normal Vagina: Normal Cervix: Normal, nulliparous Bimanual exam: 9 Week size anterior uterus. Mobile.] Extremities: No edema Assessment & Plan Assessment & Plan narrative: Assessment: 64-year-old 0 with a fibroid uterus, postmenopausal bleeding, and a right ovarian cyst Negative endometrial biopsy Patient desires definitive therapy Plan: Laparoscopic supracervical hysterectomy with bilateral salpingo-oophorectomy The risks, benefits, and alternatives to the procedure were explained to the patient. The risks including bleeding, infection, injury to the bowel, bladder, or ureters. She also understands that there is a possibility of an open procedure. She understands all of these risks and agrees to proceed. A full par Q was held. Consent form was previously signed with Dr. Hendrickson. Time-Based Coding :: [TOTAL MINUTES] spent with patient and on the chart (including review of chart, obtaining history, exam, reviewing outside data, placing orders, documenting exam and treatment plan, and counseling patient) on [DATE].
--- NOTE | 2025-01-04 09:20 | PM.PREOP ---
Pre-operative Note Interval Note History & Physical reviewed/Exam performed by Physician: Yes Changes to H&P: No H&P completed within 30 days and has changed as indicated here:: 01/04/25
[2025-01-04] MEDS: CEFAZOLIN 2 GM/100 ML PREMIX 100 ML IV (09:35)
--- NOTE | 2025-01-04 10:06 | SUR.OPER ---
Lithotomy on padded OR bed. [place] Pad Positioner under torso. Upper body safety strap. Head on pillow, arms padded and tucked at sides. Legs secured in padded yellow fins stirrups.
[2025-01-04] MEDS: ROPIVACAINE 0.2% PF 2 MG/ML 10ML AMP 20 ML INJ (10:22)
[2025-01-04] MEDS: BUPIVACAINE 0.5% W/ EPI (PF) 30 ML VIAL INJ (10:24)
--- NOTE | 2025-01-04 11:38 | SUR.PHASEI ---
Verfied verbal order for IV Tylynol due to Hx of PONV
--- NOTE | 2025-01-04 11:42 | P.OP_ITS ---
Operative Date/Time/Diagnoses Date of procedure: 01/04/25 Time of procedure: 11:42 Pre-op diagnosis: Postmenopausal bleeding Multifibroid uterus Negative endometrial biopsy Right ovarian cyst Post-op diagnosis: same Procedure & Clinicians Procedure: Procedures Operation Date: 01/04/25 09:45 Actual Procedure Side Surgeon p Laparoscopic Supracervical Hysterectomy with bilateral salpingo-oophorectomy, Lysis of Bowel Adhesions Miguelina St MD Indications: Patient is a 64-year-old 1 para 1 with postmenopausal bleeding. She had a negative endometrial biopsy in the office. On ultrasound she had multiple fibroids and what appeared to be a right ovarian cyst. Surgeon: Miguelina St [employer] Professor: Madison Betancourt Anesthesia Type: General and Local Operative Notes Findings: Seven week size anteverted uterus Multiple pedunculated and subserosal fibroids, the largest 1 measuring about 8 cm There was no cyst on the right ovary, there was a pedunculated fibroid that was adjacent to the ovary Normal tubes and ovaries Normal appendix Normal liver and gallbladder Right sided adhesions between the sidewall and the bowel/omentum Closure Type: primary Specimen(s): left tube & ovary, right tube & ovary and uterus Applied: catheter (Removed at the end of the case) Estimated blood loss (mL): 5 Blood products transfused: none Procedure in detail: Informed consent had been obtained in the office. The patient was taken to the operating room where she was placed in the dorsal supine position. After adequate general endotracheal anesthesia was achieved, she was placed in the dorsal lithotomy position, and prepped and draped in the usual sterile fashion. Care was taken with the patient's right shoulder and left knee due to recent surgery. A timeout was performed. A bivalve speculum was placed into the vagina and the anterior lip of the cervix grasped with a single-tooth tenaculum. The cervical os was sequentially dilated until the ZUMI uterine manipulator could pass easily into the endometrial cavity. The single-tooth tenaculum was removed from the anterior lip of the cervix, and the bivalve speculum was removed from the vagina. Attention was then turned to the abdomen where 6 mL of half percent Marcaine with epinephrine were injected in the umbilical fold. A 5 mm incision was made. The veress needle was placed into the peritoneal cavity, and its placement confirmed by aspiration and drop test. The abdominal cavity was insufflated with 3.2 L of CO2. The veress needle was removed. A 5 mm trocar was placed without difficulty. 3 cc of air were placed in the cuff. 2 other incisions were made 4 cm lateral to the midline at the level of the umbilicus, after 5 mL of half percent Marcaine with epinephrine were injected. These were 5 mm incisions. Two, 5 mm trocars were placed under direct visualization. The pelvis and abdomen were examined with the findings noted above. The right tube and ovary were grasped with an atraumatic grasper. Using the Powerseal, the mesosalpinx was cauterized and cut all the way down to the cornua of the uterus. The cornua of the uterus was then grasped with an atraumatic grasper. The utero-ovarian ligaments were cauterized and cut. The round ligament and broad ligament were cauterized and cut with the Powerseal. Hemostasis was achieved. The bladder flap was created using the Powerseal with cautery and cut [facility] across. The uterine arteries on the right side were extensively cauterized with the Powerseal. All of this was repeated on the left side. The remainder of the bladder flap was created using the Powerseal, and the bladder taken down off the lower uterine segment and cervix. The Zumi uterine manipulator was removed from the uterus and a moistened sponge stick was placed into the vagina. Using the Linaloop, the cervix was amputated from the uterus 2 cm above the uterosacral ligaments. There was no bleeding noted. 6 mL of half percent Marcaine with epinephrine were injected 2 cm above the pubic symphysis. A 12mm incision was made. A 12 mm trocar was placed under direct visualization. A lower Endobag was placed through the suprapubic incision and the uterus, tubes, ovaries, and fibroids were placed into the Endobag. The trocar was removed. The edges of the endobag were brought up through the skin incision. The uterus was morcellated in approximately 30 pieces. The tubes and ovaries were also removed from the Endobag. The Endobag and the Robert were removed from the peritoneal cavity. The suprapubic incision was closed with 0 Vicryl in a running fashion. The abdomen was re-insufflated. No bleeding was noted. 20 mL of 0.2% ropivacaine were placed over the pelvic pedicles. The instruments were removed from the abdomen. The CO2 was allowed to escape. Two simple interrupted sutures were placed in the subcutaneous layer on the suprapubic incision. All of the incisions were closed with 4-0 Monocryl in a subcuticular fashion. Mastisol and Steri-Strips were placed. All of the incisions were covered with Allevyn dressings. The moistened sponge stick was removed from the vagina. Sponge, lap, and instrument counts were correct x 2. The patient tolerated the procedure well, was taken to PACU in stable condition. Complications: none Post-operative Condition: stable Disposition: PACU Plan for aftercare: Home after recovery
[2025-01-04] MEDS: ACETAMINOPHEN IV 1,000 MG/100 ML VIAL 400 MG IV (11:53)
[2025-01-04] MEDS: ONDANSETRON 4 MG/2 ML INJ IV (12:03)
[2025-01-04] MEDS: METOCLOPRAMIDE 10 MG/2 ML INJ IV (13:40)
[2025-01-04] MEDS: OXYCODONE IR 5 MG TABLET PO (13:40)
--- NOTE | 2025-01-04 14:31 | SUR.PHASEII ---
Patient ambulated to the bathroom, minimal assist. Patient reported voiding about 6 drops. Bladder scan showed 65mls, although the lower abdominal dressing impeded placement of the scan. Dr. St notified. Patient given tea and encouraged hydration. Will try to void again soon. Patient denied pain or nausea.
--- NOTE | 2025-01-04 16:22 | SUR.PHASEII ---
Patient attempted to void and again reported only dribbling. Bladder scan was unable to scan any volume and patient denied the need to void. Dr. St notified. VVO for an in and out cath with the smallest catheter. Patient notfied and agreed to the catheterization. The patient was cleaned with betadine and a 8 fr catheter was placed. Clear yellow urine drained slowly from bladder to a total of 110mls. Dr. St notified. VVO patient may discharge but needs to void regularly every 3-4 hours. Patient notified.
== END 2025-01-04 16:27 | disposition home or self-care (01) ==
PROVIDERS: Family Provider Family Medicine; PCP Family Medicine; Referring Provider Obstetrics & Gynecology; Visit Provider Obstetrics & Gynecology
PROC: 0UT94ZL Resection of Uterus, Supracervical, Percutaneous Endoscopic Approach (ICD-10-PCS; CPT 58542; principal; 2025-01-04 09:45)
DX: N95.0 Postmenopausal bleeding (principal); R10.2 Pelvic and perineal pain; D25.2 Subserosal leiomyoma of uterus; N73.6 Female pelvic peritoneal adhesions (postinfective)
CPT/HCPCS: 58542; J0131; J0330; J0690; J1100; J1171; J1885; J2405; J2704; J2765; J2795; J3010; J3490